=== PATIENT | male | born 1995 | race Caucasian/White ===

== ENCOUNTER 2018-07-03 07:55 | Emergency (ER) | payer BC, OTHER ==
--- NOTE | 2018-07-03 08:53 | ER ---
Nurse's Notes [facility] Name: Jhon Willoughby Age: 22 yrs Sex: Male : 1995 Arrival Date: 07/03/2018 Time: 07:58 Bed 15 Private MD: Eliana Becerra H Diagnosis: Chest pain, unspecified;Acute stress reaction Presentation: 07/03 08:04 Presenting complaint: Patient states: chest pain that began an hour ago. Pt states, "I ss think it's stress and anxiety related. I got into an argument with my mom at the time this started.". Transition of care: patient was not received from another setting of care. Onset of symptoms was July 03, 2018. Risk Assessment: Do you want to hurt yourself or someone else? Patient reports no desire to harm self or others. Initial Sepsis Screen: Does the patient meet any 2 criteria? No. Patient's initial sepsis screen is negative. Does the patient have a suspected source of infection? No. Patient's initial sepsis screen is negative. Care prior to arrival: None. 08:04 Method Of Arrival: Ambulatory ss 08:04 Acuity: ELENA 4 ss Historical: - Allergies: 08:05 No Known Allergies; ss - Home Meds: 08:00 rescue inhaler [Active]; rb1 - PMHx: 08:05 Anxiety; Depression; ss 08:00 Asthma; rb1 - PSHx: 08:05 None; ss - Immunization history:: Adult Immunizations up to date. - Ebola Screening: : Patient denies exposure to infectious person Patient denies travel to an Ebola-affected area in the 21 days before illness onset. - Family history:: not pertinent. - Social history:: Smoking status: Patient/guardian denies using tobacco. - Hospitalizations: : No recent hospitalization is reported. Screenin:00 Abuse screen: Denies threats or abuse. Nutritional screening: No deficits noted. rb1 Tuberculosis screening: No symptoms or risk factors identified. Fall Risk None identified. Assessment: 08:00 General: Appears in no apparent distress. comfortable, slender, Behavior is calm, rb1 cooperative. Pain: Complains of pain in anterior aspect of left upper chest Pain radiates to left arm Pain currently is 6 out of 10 on a pain scale. Pain began 1 hour ago. pt. got into an argument with his mother and started having pain after that. Pt. stated, "I think it's just from anxiety because I have anxiety attacks.". Neuro: Level of Consciousness is awake, alert, obeys commands, Oriented to person, place, time, situation. Cardiovascular: Capillary refill < 3 seconds is brisk in bilateral fingers Rhythm is sinus bradycardia. Respiratory: Airway is patent Respiratory effort is even, unlabored, Respiratory pattern is regular, symmetrical. GI: No signs and/or symptoms were reported involving the gastrointestinal system. : No signs and/or symptoms were reported regarding the genitourinary system. Derm: Skin is pink, warm \\T\\ dry. 09:00 Reassessment: Patient appears in no apparent distress at this time. No changes from rb1 previously documented assessment. Vital Signs: 08:05 BP 127 / 86; Pulse 57; Resp 16; Pulse Ox 100% on R/A; Weight 61.23 kg; Height 5 ft. 10 ss in. (177.80 cm); Pain 7/10; 09:04 BP 127 / 86; Pulse 57; Resp 14; Pulse Ox 100% on R/A; Pain 0/10; rb1 08:05 Body Mass Index 19.37 (61.23 kg, 177.80 cm) ss ED Course: 07:58 Patient arrived in ED. sb2 07:59 Eliana Becerra DO is Private Physician. sb2 08:00 Amish Humphries MD is Attending Physician. rn 08:00 Patient has correct armband on for positive identification. Placed in gown. Bed in low rb1 position. Call light in reach. Side rails up X 1. alarm security or surveillance monitor on. Pulse ox on. NIBP on. 08:00 Patient maintains SpO2 saturation greater than 95% on room air. rb1 08:05 Triage completed. ss 08:05 Arm band placed on right wrist. ss 08:06 Sonya Wood, RN is Primary Nurse. rb1 08:15 Patient moved to radiology via wheelchair. jb2 08:16 Initial lab(s) drawn, by me, sent to lab. Inserted saline lock: 20 gauge in right dh3 antecubital area, using aseptic technique. Blood collected. 08:25 X-ray completed. Patient tolerated procedure well. ag1 08:31 Patient moved back from radiology. jb2 08:32 XRAY Chest Pa And Lat (2 Views) In Process Unspecified. EDMS 09:10 No provider procedures requiring assistance completed. IV discontinued, intact, rb1 bleeding controlled, No redness/swelling at site. Administered Medications: No medications were administered Outcome: 08:52 Discharge ordered by MD. rn 09:10 Discharged to home ambulatory, with family. rb1 09:10 Condition: stable 09:10 Discharge instructions given to patient, Instructed on discharge instructions, follow up and referral plans. Demonstrated understanding of instructions, follow-up care, Prescriptions given X none 09:11 Patient left the ED. rb1 Signatures: Dispatcher [employer] EDIL Sukhdev Sandoval jb2 Amish Humphries MD MD rn Smirch, Shelby, RN RN ss Kelli Skinner ag1 oSnya Wood RN RN rb1 Tonya Cagle 3 Maritza Burch sb2 Corrections: (The following items were deleted from the chart) 08:45 08:05 Home Meds: None; rb1
--- NOTE | 2018-07-03 08:53 | EDPHYS ---
Physician Documentation [facility] Name: Jhon Willoughby Age: 22 yrs Sex: Male : 1995 Arrival Date: 07/03/2018 Time: 07:58 Bed 15 Private MD: Eliana Becerra H ED Physician Amish Humphries HPI: 07/03 08:09 This 22 yrs old Male presents to ER via Ambulatory with complaints of Chest rn Pain. 08:09 The patient or guardian reports chest pain that is located primarily in the chest rn diffusely. The pain radiates to the left arm. Associated signs and symptoms: Pertinent positives: None. Pertinent negatives: diaphoresis, dizziness, lightheadedness, shortness of breath, syncope, vomiting. The chest pain is described as a heaviness. Duration: The patient or guardian reports a single episode, that is still ongoing. Modifying factors: The symptoms are alleviated by nothing. the symptoms are aggravated by emotionally stressful situations. Severity of pain: At its worst the pain was moderate in the emergency department the pain has improved. The patient has experienced similar episodes in the past. Reports had argument with mother for about 15 min, during and shortly after experienced chest pain, heavy, with radiation to left arm, now improving, no fever/cough, felt fine prior to argument, has had episodes like this before in times of stress but worse today.. Historical: - Allergies: 08:05 No Known Allergies; ss - Home Meds: 08:00 rescue inhaler [Active]; rb1 - PMHx: 08:05 Anxiety; Depression; ss 08:00 Asthma; rb1 - PSHx: 08:05 None; ss - Immunization history:: Adult Immunizations up to date. - Ebola Screening: : Patient denies exposure to infectious person Patient denies travel to an Ebola-affected area in the 21 days before illness onset. - Family history:: not pertinent. - Social history:: Smoking status: Patient/guardian denies using tobacco. - Hospitalizations: : No recent hospitalization is reported. ROS: 08:09 Constitutional: Negative for fever, chills, and weight loss, Eyes: Negative for injury, rn pain, redness, and discharge, Neck: Negative for injury, pain, and swelling, Cardiovascular: + chest pain Respiratory: Negative for shortness of breath, cough, wheezing, and pleuritic chest pain, Abdomen/GI: Negative for abdominal pain, nausea, vomiting, diarrhea, and constipation, Back: Negative for injury and pain, MS/Extremity: Negative for injury and deformity, Skin: Negative for injury, rash, and discoloration, Neuro: Negative for headache, weakness, numbness, tingling, and seizure. Exam: 08:09 Constitutional: This is a well developed, well nourished patient who is awake, alert, rn and in no acute distress. Head/Face: Normocephalic, atraumatic. Cardiovascular: Regular rate and rhythm with a normal S1 and S2. No gallops, murmurs, or rubs. Normal PMI, no JVD. No pulse deficits. Respiratory: Lungs have equal breath sounds bilaterally, clear to auscultation and percussion. No rales, rhonchi or wheezes noted. No increased work of breathing, no retractions or nasal flaring. Abdomen/GI: Soft, non-tender, with normal bowel sounds. No distension or tympany. No guarding or rebound. No evidence of tenderness throughout. Skin: Warm, dry with normal turgor. Normal color with no rashes, no lesions, and no evidence of cellulitis. MS/ Extremity: Pulses equal, no cyanosis. Neurovascular intact. Full, normal range of motion. Equal circumference. Neuro: Awake and alert, GCS 15, oriented to person, place, time, and situation. Cranial nerves II-XII grossly intact. Motor strength 5/5 in all extremities. Sensory grossly intact. Cerebellar exam normal. Normal gait. 08:52 ECG was reviewed by the Attending Physician. rn Vital Signs: 08:05 BP 127 / 86; Pulse 57; Resp 16; Pulse Ox 100% on R/A; Weight 61.23 kg; Height 5 ft. 10 ss in. (177.80 cm); Pain 7/10; 09:04 BP 127 / 86; Pulse 57; Resp 14; Pulse Ox 100% on R/A; Pain 0/10; rb1 08:05 Body Mass Index 19.37 (61.23 kg, 177.80 cm) ss MDM: 08:00 Patient medically screened. rn 08:51 Differential diagnosis: acute pericarditis, anxiety, chest wall pain, pleurisy, rn pneumothorax. Data reviewed: vital signs, nurses notes, lab test result(s), EKG, radiologic studies, plain films, and as a result, I will discharge patient. Counseling: I had a detailed discussion with the patient and/or guardian regarding: the historical points, exam findings, and any diagnostic results supporting the discharge/admit diagnosis, lab results, radiology results, the need for outpatient follow up, to return to the emergency department if symptoms worsen or persist or if there are any questions or concerns that arise at home. Special discussion: Based on the patient's history, exam, and Dx evaluation, there is no indication for emergent intervention or inpatient Tx. It is understood by the patient/guardian that if the Sx's persist or worsen they need to return immediately for re-evaluation. I discussed with the patient/guardian in detail that at this point there is no indication for admission to the hospital. It is understood, however, that if the symptoms persist or worsen the patient needs to return immediately for re-evaluation. 07/03 08:08 Order name: Troponin (emerg Dept Use Only); Complete Time: 08:51 rn 07/03 08:08 Order name: Troponin (emerg Dept Use Only) rn 07/03 08:08 Order name: IV Start; Complete Time: 08:20 rn 07/03 08:08 Order name: XRAY Chest Pa And Lat (2 Views) rn 07/03 08:08 Order name: EKG; Complete Time: 08:09 rn 07/03 08:08 Order name: EKG - Nurse/Tech; Complete Time: 08:17 rn EC:52 Rate is 60 beats/min. Rhythm is regular. QRS [place] is Normal. OK interval is normal. QRS rn interval is normal. QT interval is normal. No Q waves. T waves are Normal. No ST changes noted. Clinical impression: Normal ECG. Interpreted by me. Administered Medications: No medications were administered Disposition: 07/03/18 08:52 Discharged to Home. Impression: Chest pain, unspecified, Acute stress reaction. - Condition is Stable. - Discharge Instructions: Nonspecific Chest Pain. - Medication Reconciliation Form, Thank You Letter, Antibiotic Education, Prescription Opioid Use form. - Follow up: Private Physician; When: As needed; Reason: Recheck today's complaints, Re-evaluation by your physician. - Problem is new. - Symptoms have improved. Signatures: Dispatcher [employer] EDMS Humphries, AmishMD MD manuel Shelby, MANUEL RN Sonya Roe, RN RN rb1 Corrections: (The following items were deleted from the chart) 08:45 08:05 Home Meds: None; rb1 09:11 08:52 07/03/2018 08:52 Discharged to Home. Impression: Chest pain, unspecified; Acute rb1 stress reaction. Condition is Stable. Forms are Medication Reconciliation Form, Thank You Letter, Antibiotic Education, Prescription Opioid Use. Follow up: Private Physician; When: As needed; Reason: Recheck today's complaints, Re-evaluation by your physician. Problem is new. Symptoms have improved. rn
--- NOTE | 2018-07-03 09:15 | RAD REPORT ---
EXAM DESCRIPTION: RAD - Chest Pa And Lat (2 Views) - 07/03/2018 8:34 am CLINICAL HISTORY: CHEST PAIN Chest pain. COMPARISON: Chest Pa And Lat (2 Views) dated 06/11/2017 FINDINGS: The lungs are clear. The heart is normal in size. No displaced fractures. IMPRESSION: No acute or concerning finding suspected.
--- NOTE | 2018-07-03 12:11 | EKG ---
Test Date: 2018-07-03 Test Time: 08:12:34 Bed Bug Exterminator: REAL MEASUREMENT RESULTS: Intervals: Rate: 60 DE: 124 QRSD: 104 QT: 390 QTc: 390 Stacy: P: 42 DE: 124 QRS: 50 T: 58 INTERPRETIVE STATEMENTS: Normal sinus rhythm with sinus arrhythmia Normal ECG No previous ECG available for comparison Electronically Signed On 07-03-18 12:11:16 CDT by Mihir Hawkins
== END 2018-07-03 09:11 | disposition home or self-care (01) ==
LOC: ER 07:55
DX: F43.0 Acute stress reaction (principal); J45.909 Unspecified asthma, uncomplicated
CPT/HCPCS: 36415; 71046; 84484; 93005; 99285

== ENCOUNTER 2019-04-08 09:13 | Emergency (ER) | payer BC ==
[2019-04-08] MEDS ORDERED: HYDROCODONE/APAP 5/325 MG TAB ONE (09:48)
--- NOTE | 2019-04-08 09:56 | EDPHYS ---
Physician Documentation [facility] Name: Jhon Willoughby Age: 23 yrs Sex: Male : 1995 Arrival Date: 04/08/2019 Time: 09:16 Bed 18 Private MD: Eliana Becerra H ED Physician Amish Humphries HPI: 04/08 09:54 This 23 yrs old Male presents to ER via Ambulatory with complaints of Hand kb Injury. 09:54 The patient or guardian reports deformity, pain, swelling, tenderness. The complaints kb affect the dorsum of right hand. Context: The problem was sustained at home, resulted from using own fist to strike, a wall. Onset: The symptoms/episode began/occurred just prior to arrival. Modifying factors: The symptoms are alleviated by nothing, the symptoms are aggravated by nothing. Associated signs and symptoms: The patient has no apparent associated signs or symptoms. Severity of symptoms: At their worst the symptoms were moderate, in the emergency department the symptoms are unchanged. The patient has not experienced similar symptoms in the past. The patient has not recently seen a physician. Historical: - Allergies: 09:31 No Known Allergies; ss - Home Meds: 09:31 None [Active]; ss - PMHx: 09:31 Anxiety; Asthma; Depression; ss - PSHx: 09:31 None; ss - Immunization history:: Adult Immunizations up to date. - Social history:: Smoking status: Patient/guardian denies using tobacco. - Ebola Screening: : Patient denies exposure to infectious person Patient denies travel to an Ebola-affected area in the 21 days before illness onset. ROS: 09:54 Constitutional: Negative for fever, chills, and weight loss, Cardiovascular: Negative kb for chest pain, palpitations, and edema, Respiratory: Negative for shortness of breath, cough, wheezing, and pleuritic chest pain, Abdomen/GI: Negative for abdominal pain, nausea, vomiting, diarrhea, and constipation, Back: Negative for injury and pain, Skin: Negative for injury, rash, and discoloration, Neuro: Negative for headache, weakness, numbness, tingling, and seizure. 09:54 MS/extremity: Positive for injury or acute deformity, deformity, pain, swelling, tenderness, of the dorsum of right hand. Exam: 09:53 Constitutional: This is a well developed, well nourished patient who is awake, alert, kb and in no acute distress. Head/Face: Normocephalic, atraumatic. Chest/axilla: Normal chest wall appearance and motion. Nontender with no deformity. No lesions are appreciated. Cardiovascular: Regular rate and rhythm with a normal S1 and S2. No gallops, murmurs, or rubs. Normal PMI, no JVD. No pulse deficits. Respiratory: Lungs have equal breath sounds bilaterally, clear to auscultation and percussion. No rales, rhonchi or wheezes noted. No increased work of breathing, no retractions or nasal flaring. Abdomen/GI: Soft, non-tender, with normal bowel sounds. No distension or tympany. No guarding or rebound. No evidence of tenderness throughout. Skin: Warm, dry with normal turgor. Normal color with no rashes, no lesions, and no evidence of cellulitis. Neuro: Awake and alert, GCS 15, oriented to person, place, time, and situation. Cranial nerves II-XII grossly intact. Motor strength 5/5 in all extremities. Sensory grossly intact. Cerebellar exam normal. Normal gait. 09:53 Musculoskeletal/extremity: Extremities: grossly normal except: noted in the dorsum of right hand: deformity, pain, ROM: intact in all extremities, Circulation is intact in all extremities. Sensation intact. Vital Signs: 09:31 Pulse 93; Resp 16; Temp 97.8(TE); Pulse Ox 100% on R/A; Weight 63.5 kg; Height 5 ft. 11 ss in. (180.34 cm); Pain 8/10; 09:36 BP 128 / 91; sv 11:11 BP 145 / 67; Pulse 61; Resp 18; Pulse Ox 100% on R/A; aj1 09:31 Body Mass Index 19.53 (63.50 kg, 180.34 cm) Procedures: 11:03 Splinting: Splint applied to right hand using Orthoglass splint, applied by nurse. kb Examined by me, post splint application: neurovascular intact, 2+ distal pulses palpable, brisk capillary refill noted, Patient tolerated well. MDM: 09:25 Patient medically screened. kb 09:52 Data reviewed: vital signs, nurses notes. Data interpreted: Pulse oximetry: on room air kb is 100 %. Interpretation: normal. Test interpretation: by ED physician or midlevel provider: plain radiologic studies, displaced fracture of fifth metacarpal. Counseling: I had a detailed discussion with the patient and/or guardian regarding: the historical points, exam findings, and any diagnostic results supporting the discharge/admit diagnosis, radiology results, the need for outpatient follow up, a orthopedic surgeon, to return to the emergency department if symptoms worsen or persist or if there are any questions or concerns that arise at home. 04/08 09:27 Order name: Hand Right 3 View XRAY kb 04/08 09:53 Order name: Ulnar Gutter splint; Complete Time: 11:02 kb Administered Medications: 09:39 Drug: Orange 5 mg-325 mg 1 tabs Route: PO; sv Disposition: 04/08/19 09:56 Discharged to Home. Impression: Displaced fracture of base of fifth metacarpal bone, right hand. - Condition is Stable. - Discharge Instructions: Boxer's Fracture. - Prescriptions for Diclofenac Sodium 75 mg Oral Tablet, Delayed Release (E.C.) - take 1 tablet by ORAL route 2 times per day As needed; 30 tablet. - Medication Reconciliation Form, Thank You Letter, Antibiotic Education, Prescription Opioid Use form. - Follow up: Emergency Department; When: As needed; Reason: Worsening of condition. Follow up: Private Physician; When: 2 - 3 days; Reason: Recheck today's complaints, Continuance of care, Re-evaluation by your physician. Addendum: 04/10/2019 07:06 Co-signature as Attending Physician, Amish Humphries MD. r n Signatures: Dispatcher [employer] EDHI Mony Brennan, MAPPING PILOT-C MAPPING PILOT-Ckb Marcie Teran RN RN aj1 Ruth Sanabria RN RN sv Nieto, Roman, MD MD rn Smirch, Shelby, RN RN ss Corrections: (The following items were deleted from the chart) 04/08 11:12 09:56 04/08/2019 09:56 Discharged to Home. Impression: Displaced fracture of base of aj1 fifth metacarpal bone, right hand. Condition is Stable. Forms are Medication Reconciliation Form, Thank You Letter, Antibiotic Education, Prescription Opioid Use. Follow up: Emergency Department; When: As needed; Reason: Worsening of condition. Follow up: Private Physician; When: 2 - 3 days; Reason: Recheck today's complaints, Continuance of care, Re-evaluation by your physician. kb
--- NOTE | 2019-04-08 09:56 | ER ---
Nurse's Notes [facility] Name: Jhon Willoughby Age: 23 yrs Sex: Male : 1995 Arrival Date: 04/08/2019 Time: 09:16 Bed 18 Private MD: Eliana Becerra H Diagnosis: Displaced fracture of base of fifth metacarpal bone, right hand Presentation: 04/08 09:30 Presenting complaint: Patient states: R hand pain after punching a wall 30 minutes ago. ss Transition of care: patient was not received from another setting of care. Onset of symptoms was April 08, 2019. Risk Assessment: Do you want to hurt yourself or someone else? Patient reports no desire to harm self or others. Initial Sepsis Screen: Does the patient meet any 2 criteria? No. Patient's initial sepsis screen is negative. Does the patient have a suspected source of infection? No. Patient's initial sepsis screen is negative. Care prior to arrival: None. 09:30 Method Of Arrival: Ambulatory ss 09:30 Acuity: ELENA 4 ss Historical: - Allergies: 09:31 No Known Allergies; ss - Home Meds: 09:31 None [Active]; ss - PMHx: 09:31 Anxiety; Asthma; Depression; ss - PSHx: 09:31 None; ss - Immunization history:: Adult Immunizations up to date. - Social history:: Smoking status: Patient/guardian denies using tobacco. - Ebola Screening: : Patient denies exposure to infectious person Patient denies travel to an Ebola-affected area in the 21 days before illness onset. Screenin:37 Abuse screen: Denies threats or abuse. Denies injuries from another. Abuse screen: sv Denies threats or abuse. Nutritional screening: No deficits noted. Tuberculosis screening: No symptoms or risk factors identified. Fall Risk None identified. Assessment: 10:15 General: Appears in no apparent distress. uncomfortable, Behavior is calm, cooperative, aj1 appropriate for age. Pain: Complains of pain in dorsum of right hand. Neuro: Level of Consciousness is awake, alert, obeys commands, Oriented to person, place, time, situation. Cardiovascular: Patient's skin is warm and dry. Respiratory: Airway is patent Respiratory effort is even, unlabored, Respiratory pattern is regular, symmetrical. GI: No signs and/or symptoms were reported involving the gastrointestinal system. : No signs and/or symptoms were reported regarding the genitourinary system. EENT: No signs and/or symptoms were reported regarding the EENT system. Derm: No signs and/or symptoms reported regarding the dermatologic system. Skin is pink, warm \T\ dry. normal. Musculoskeletal: Range of motion: limited in right hand Swelling present in right hand. 11:03 Reassessment: Splint verified by Arsalan Sands NP. aj1 Vital Signs: 09:31 Pulse 93; Resp 16; Temp 97.8(TE); Pulse Ox 100% on R/A; Weight 63.5 kg; Height 5 ft. 11 ss in. (180.34 cm); Pain 8/10; 09:36 BP 128 / 91; sv 11:11 BP 145 / 67; Pulse 61; Resp 18; Pulse Ox 100% on R/A; aj1 09:31 Body Mass Index 19.53 (63.50 kg, 180.34 cm) ss ED Course: 09:16 Patient arrived in ED. mr 09:16 Eliana Becerra DO is Private Physician. mr 09:17 [facility] kb 09:17 Amish Humphries MD is Attending Physician. kb 09:30 Triage completed. ss 09:31 Arm band placed on right wrist. ss 09:33 Ruth Sanabria, MANUEL is Primary Nurse. sv 09:37 Awaiting radiology results. sv 09:37 Patient has correct armband on for positive identification. Bed in low position. Call sv light in reach. Adult w/ patient. Pulse ox on. NIBP on. Door closed. Head of bed elevated. 09:37 X-ray(s) taken. sv 09:43 X-ray completed. Portable x-ray completed in exam room. Patient tolerated procedure sw well. 09:45 Hand Right 3 View XRAY In Process Unspecified. EDMS 10:15 No provider procedures requiring assistance completed. aj1 11:02 Orthoglass splint: Ulnar gutter/Boxer splint applied on right forearm. aj1 11:11 Patient did not have IV access during this emergency room visit. aj1 Administered Medications: 09:39 Drug: [place] 5 mg-325 mg 1 tabs Route: PO; sv Outcome: 09:56 Discharge ordered by . juju 11:11 Discharged to home ambulatory. aj1 11:11 Condition: good 11:11 Discharge instructions given to patient, family, Instructed on discharge instructions, follow up and referral plans. medication usage, splint care, circulation checks Demonstrated understanding of instructions, follow-up care, medications, splint care, circulation checks Prescriptions given X 1. 11:12 Patient left the ED. aj1 Signatures: Dispatcher [employer] EDMS Mony Brennan, CHANTELL-Elisa MCCOLLUMP-Marcie Franco, RN RN aj1 Ruth Sanabria RN RN Gely Crane mr Yana Goldstein, MANUEL RN Viola Leon
--- NOTE | 2019-04-08 11:32 | RAD REPORT ---
EXAM DESCRIPTION: RAD - Hand Right 3 View - 04/08/2019 9:44 am CLINICAL HISTORY: Right hand pain status post injury FINDINGS: Fracture/dislocation involves the base of the fifth metacarpal. The fracture extends intra articularly. An approximately 1 centimeter avulsion fractures present
== END 2019-04-08 11:12 | disposition home or self-care (01) ==
LOC: ER 09:13
PROC: 2W3CX1Z Immobilization of Right Lower Arm using Splint (ICD-10-PCS; principal; 2019-04-08)
DX: S62.316A Displaced fracture of base of fifth metacarpal bone, right hand, initial encounter for closed fracture (principal); X58.XXXA Exposure to other specified factors, initial encounter; Y92.009 Unspecified place in unspecified non-institutional (private) residence as the place of occurrence of the external cause; F41.9 Anxiety disorder, unspecified; F32.9 Major depressive disorder, single episode, unspecified; J45.909 Unspecified asthma, uncomplicated
CPT/HCPCS: 99284